=== PATIENT | female | born 1980 | race Caucasian/White ===

== ENCOUNTER 2016-07-03 11:45 | Inpatient (IN) | payer MEDICAID ==
[2016-07-03] VITALS (7 sets, daily range): BP systolic 117–139; BP diastolic 76–100; PULSE 93–129; RESP 16
[~2016-07-03 11:45] MED LIST: ADDE30TA PO; PREN1MIS11 PO
[2016-07-03] MEDS ORDERED: LACTATED RINGER'S 1000 ML INJ 1,000 ML IV PRN (12:20)
[2016-07-03] MEDS ORDERED: MINERAL OIL 10 ML VIAL TOPICAL PRN (12:30)
[2016-07-03] MEDS ORDERED: SODIUM CHLORID 0.9% 500 ML INJ 500 ML IV PRN (12:30)
[2016-07-03] MEDS ORDERED: LIDOCAINE HCL 1% 50 ML VIAL INFIL PRN (12:30)
[2016-07-03] MEDS ORDERED: LIDOCAINE HCL 1% 50 ML VIAL I-DERMAL PRN (12:30)
[2016-07-03] MEDS ORDERED: CITRIC ACID-SODIUM CITRATE LIQ 30 ML UDC PO SCH (12:30)
[2016-07-03] MEDS ORDERED: OXYTOCIN 30 UNITS-500ML PREMIX 500 ML IV SCH (12:30)
[2016-07-03] MEDS ORDERED: OXYTOCIN 30 UNITS-500ML PREMIX 500 ML IV ONE ×2 (12:30→23:30)
--- NOTE | 2016-07-03 12:39 | PD ---
HPI Chief Complaint Polyhydramnios Date Seen: Jul 03, 2016 Time Seen: 12:49 Travel History International Travel<30 Days: No Contact w/Intl Traveler<30Days: No Known Affected Area: No History of Present Illness HPI 36-year-old G4 for P2, presenting at 39.4 weeks gestation, with HUBER of 2016, diagnosed with polyhydramnios and an ultrasound done on 06/24 (MICA of 27.3 ). She has had late care, establishing care with the OB provider at 33 weeks. She is GBS negative. A BPP today on admission was 8. He has been using tobacco, and Adderall 30 mg daily throughout the , however quit approximately 2 weeks ago. She was not screened for gestational diabetes. Estimated weight greater than 90th percentile. No evidence of placenta previa (06/24) that was noted on previous ultrasounds. Today, she feels well. She denies any regular contractions that are increasing in frequency. She denies any loss of fluid or vaginal bleeding. She has been having some exertional dyspnea, but this is not new. She denies any headaches or change in vision. History Past Medical History Narrative Medical ADHD Gestational hypertension (this ) - blood pressures in the office 152- 150 systolic. No protein on urine dip. Tobacco use Polyhydramnios Advanced maternal age Late care. Previous placenta previa, no longer seen on ultrasound on 06/24. Surgical history: D&C in 2008 at 12 weeks gestation. Right ear drum surgery in 2012. Obstetric History Obstetric History Spontaneous vaginal delivery 2, no complications No previous C-sections Past Surgical History Narrative Surgical As above Family History Family History: Negative Social History Alcohol Use: No Tobacco Use: Yes (quit approximately 2 weeks ago) Substance Abuse: No (she denies any illicit substance abuse.) Allergies-Medications (Allergen,Severity, Reaction): Coded Allergies: Augmentin (Verified Allergy, Severe, Anaphylaxis, 06/26/16) Home Meds Active Scripts W/O Vit A W/ Fe Carbo Pack (Citranatal 90 Dha Pack)90-1 & 300 Mg Pack1 Ea PO DAILY #60 BLISTER Ref 11 30 day supply. Prov:Nadia Browne 05/27/16 Reported Medications Amphetamine-Dextroamphetamine (Adderall)30 Mg Tab30 Mg PO BID #60 TAB Ref 0 Avoid late evening doses. Space doses at least 4 to 6 hours if more than once/day dosing. 05/27/16 Review of Systems Except as stated in HPI: all other systems reviewed are Neg Physical Exam Narrative GENERAL: Well-nourished, well-developed patient. SKIN: Warm and dry. HEAD: Normocephalic and atraumatic. EYES: No scleral icterus. No injection or drainage. ENT: No nasal drainage noted. Mucous membranes pink. Airway patent. NECK: Supple, trachea midline. No JVD. CARDIOVASCULAR: Regular rate and rhythm without murmurs, gallops, or rubs. RESPIRATORY: Breath sounds equal bilaterally. No accessory muscle use. BREASTS: Bilateral exam showed no masses , no retractions, no nipple discharge. ABDOMEN/GI: Abdomen soft, non-tender, bowel sounds present, no rebound, no guarding Gravid to 39+ GENITOURINARY: External Genitalia: intact and normal in appearance Cervix: midposition Dilatation: 2-3 cm Effacement: 50% Presentation: Vertex Membranes: intact Uterine Contractions: occ FHT's: Category: 1 Baseline: 145 Reactive: Y Variability: moderate 6-25 Decels: [-] EXTREMITIES: No cyanosis or edema. BACK: Nontender without obvious deformity. NEUROLOGICAL: Awake and alert. Motor and sensory grossly within normal limits. Data Data Orders Ob Poc Ultrasound (07/03/16 ) Admit To Inpatient (07/03/16 ) Code Status (07/03/16 12:20) Vital Signs (Adult) .Per protocol (07/03/16 12:20) ^ Heart (07/03/16 12:20) ^ Amnioinfusion (07/03/16 12:20) Urinary Catheter Management .ONCE (07/03/16 12:20) Lactated Ringer's 1000 Ml Inj (Lr 1000 M (07/03/16 13:00) Lactated Ringer's 1000 Ml Inj (Lr 1000 M (07/03/16 12:20) Sodium Chlorid 0.9% 500 Ml Inj (Ns 500 M (07/03/16 12:30) Sodium Chlor 0.9% 1000 Ml Inj (Ns 1000 M (07/03/16 12:40) Lidocaine 1% Inj (50 Ml) (Xylocaine 1% I (07/03/16 12:30) Citric Acid-Sodium Citrate Liq (Bicitra (07/03/16 12:30) Fentanyl Inj (Fentanyl Inj) (07/03/16 12:30) Fentanyl Inj (Fentanyl Inj) (07/03/16 12:30) Complete Blood Count With Diff (07/03/16 12:20) Hold Clot (07/03/16 12:20) Abo/Rh Blood Type (07/03/16 12:20) Urinalysis - C+S If Indicated (07/03/16 12:20) Resp Oxygen Non Rebreathe Mask (07/03/16 ) ^ Epidural / Intrathecal Infus (07/03/16 12:20) Oxytocin 30 Units-500ml Premix (Pitocin (07/03/16 12:30) Lidocaine 1% Inj (50 Ml) (Xylocaine 1% I (07/03/16 12:30) Light Mineral Oil (Muri-Lube Oil) (07/03/16 12:30) Inpatient Certification (07/03/16 ) ^ Non Stress Test (07/03/16 12:22) Response To Medication .Post New Med Administration, Reaction (07/03/16 12:22) ^ Discontinue Medication (07/03/16 12:22) Oxytocin 30 Units-500ml Premix (Pitocin (07/03/16 12:30) Ob (2e) Additional Admit Info (07/03/16 12:22) [facility] Medical Record Reviewed: Yes Plan 36 y/o at 39.4 weeks gestation presenting with oligohydramnios (MICA 27.3), LGA (>90% on 38 week US), tobacco use, Adderall use, placenta previa (resolved on US on 06/24), presenting for BPP and possible induction of labor. #1: IUP Admit for induction of labor. Pitocin 30 #2: Polyhydramnios BPP 02/09 on bedside. Cat 1 tracing Cervix 2-3 cm, 50% effaced, mid position. Having period contractions. Admit to L&D for augmentation of labor 2/2 several risk factors (i.e polyhydramnios, gestational hypertension, tobacco use, LGA, previous placenta previa). #3: Tob use during Quit smoking 2 weeks ago. #4: Elevated BP - 154 systolic in third trimester in office. Continue to monitor BP q 1 hr, treat with nifedipine 10 mg if > 150/90. Negative Protein in urine as outpatient. #5: Placenta Previa Resolved #6: LGA baby >90% on OB US at 38 weeks. Check HgA1c and glucose. Labor precautions sdw Dr. Nuñez. Jonathan Lisa MD R2 Jul 03, 2016 12:39
[2016-07-03] MEDS ORDERED: SODIUM CHLOR 0.9% 1000 ML INJ 1,000 ML IV PRN (12:40)
[2016-07-03] MEDS ORDERED: LACTATED RINGER'S 1000 ML INJ 1,000 ML IV SCH (13:00)
--- NOTE | 2016-07-03 13:12 | HHI.HP ---
History & Physical H&P HPI Chief Complaint Polyhydramnios Date Seen: Jul 03, 2016 Time Seen: 12:49 Travel History International Travel<30 Days: No Contact w/Intl Traveler<30Days: No Known Affected Area: No History of Present Illness HPI 36-year-old G4 for P2, presenting at 39.4 weeks gestation, with HUBER of 2016, diagnosed with polyhydramnios and an ultrasound done on 06/24 (MICA of 27.3 ). She has had late care, establishing care with the OB provider at 33 weeks. She is GBS negative. A BPP today on admission was 8/8. He has been using tobacco, and Adderall 30 mg daily throughout the , however quit approximately 2 weeks ago. She was not screened for gestational diabetes. Estimated weight greater than 90th percentile. No evidence of placenta previa (06/24) that was noted on previous ultrasounds. Today, she feels well. She denies any regular contractions that are increasing in frequency. She denies any loss of fluid or vaginal bleeding. She has been having some exertional dyspnea, but this is not new. She denies any headaches or change in vision. History (Limited) History Past Medical History Narrative Medical ADHD Gestational hypertension (this ) - blood pressures in the office 152- 150 systolic. No protein on urine dip. Tobacco use Polyhydramnios Advanced maternal age Late care. Previous placenta previa, no longer seen on ultrasound on 06/24. Surgical history: D&C in 2009 at 12 weeks gestation. Right ear drum surgery in 2012. Obstetric History Obstetric History Spontaneous vaginal delivery 2, no complications No previous C-sections Past Surgical History Narrative Surgical As above Family History Family History: Negative Social History Alcohol Use: No Tobacco Use: Yes (quit approximately 2 weeks ago) Substance Abuse: No (she denies any illicit substance abuse.) Allergies-Medications Allergies-Medications (Allergen,Severity, Reaction): Coded Allergies: Augmentin (Verified Allergy, Severe, Anaphylaxis, 06/26/16) Home Meds Active Scripts W/O Vit A W/ Fe Carbo Pack (Citranatal 90 Dha Pack)90-1 & 300 Mg Pack1 Ea PO DAILY #60 BLISTER Ref 11 30 day supply. Prov:Nadia Browne 05/27/16 Reported Medications Amphetamine-Dextroamphetamine (Adderall)30 Mg Tab30 Mg PO BID #60 TAB Ref 0 Avoid late evening doses. Space doses at least 4 to 6 hours if more than once/day dosing. 05/27/16 ROS Review of Systems Except as stated in HPI: all other systems reviewed are Neg Physical Exam Physical Exam Narrative GENERAL: Well-nourished, well-developed patient. SKIN: Warm and dry. HEAD: Normocephalic and atraumatic. EYES: No scleral icterus. No injection or drainage. ENT: No nasal drainage noted. Mucous membranes pink. Airway patent. NECK: Supple, trachea midline. No JVD. CARDIOVASCULAR: Regular rate and rhythm without murmurs, gallops, or rubs. RESPIRATORY: Breath sounds equal bilaterally. No accessory muscle use. BREASTS: Bilateral exam showed no masses , no retractions, no nipple discharge. ABDOMEN/GI: Abdomen soft, non-tender, bowel sounds present, no rebound, no guarding Gravid to 39+ GENITOURINARY: External Genitalia: intact and normal in appearance Cervix: midposition Dilatation: 2-3 cm Effacement: 50% Presentation: Vertex Membranes: intact Uterine Contractions: occ FHT's: Category: 1 Baseline: 145 Reactive: Y Variability: moderate 6-25 Decels: [-] EXTREMITIES: No cyanosis or edema. BACK: Nontender without obvious deformity. NEUROLOGICAL: Awake and alert. Motor and sensory grossly within normal limits. Data Data Data Orders Ob Poc Ultrasound (07/03/16 ) Admit To Inpatient (07/03/16 ) Code Status (07/03/16 12:20) Vital Signs (Adult) .Per protocol (07/03/16 12:20) ^ Heart (07/03/16 12:20) ^ Amnioinfusion (07/03/16 12:20) Urinary Catheter Management .ONCE (07/03/16 12:20) Lactated Ringer's 1000 Ml Inj (Lr 1000 M (07/03/16 13:00) Lactated Ringer's 1000 Ml Inj (Lr 1000 M (07/03/16 12:20) Sodium Chlorid 0.9% 500 Ml Inj (Ns 500 M (07/03/16 12:30) Sodium Chlor 0.9% 1000 Ml Inj (Ns 1000 M (07/03/16 12:40) Lidocaine 1% Inj (50 Ml) (Xylocaine 1% I (07/03/16 12:30) Citric Acid-Sodium Citrate Liq (Bicitra (07/03/16 12:30) Fentanyl Inj (Fentanyl Inj) (07/03/16 12:30) Fentanyl Inj (Fentanyl Inj) (07/03/16 12:30) Complete Blood Count With Diff (07/03/16 12:20) Hold Clot (07/03/16 12:20) Abo/Rh Blood Type (07/03/16 12:20) Urinalysis - C+S If Indicated (07/03/16 12:20) Resp Oxygen Non Rebreathe Mask (07/03/16 ) ^ Epidural / Intrathecal Infus (07/03/16 12:20) Oxytocin 30 Units-500ml Premix (Pitocin (07/03/16 12:30) Lidocaine 1% Inj (50 Ml) (Xylocaine 1% I (07/03/16 12:30) Light Mineral Oil (Muri-Lube Oil) (07/03/16 12:30) Inpatient Certification (07/03/16 ) ^ Non Stress Test (07/03/16 12:22) Response To Medication .Post New Med Administration, Reaction (07/03/16 12:22) ^ Discontinue Medication (07/03/16 12:22) Oxytocin 30 Units-500ml Premix (Pitocin (07/03/16 12:30) Ob (2e) Additional Admit Info (07/03/16 12:22) MDM MDM Medical Record Reviewed: Yes Plan 36 y/o at 39.4 weeks gestation presenting with oligohydramnios (MICA 27.3), LGA (>90% on 38 week US), tobacco use, Adderall use, placenta previa (resolved on US on 06/24), presenting for BPP and possible induction of labor. #1: IUP Admit for induction of labor. Pitocin 07-05-29 #2: Polyhydramnios BPP 02/09 on bedside. Cat 1 tracing Cervix 2-3 cm, 50% effaced, mid position. Having period contractions. Admit to L&D for augmentation of labor 2/2 several risk factors (i.e polyhydramnios, gestational hypertension, tobacco use, LGA, previous placenta previa). #3: Tob use during Quit smoking 2 weeks ago. #4: Elevated BP - 154 systolic in third trimester in office. Continue to monitor BP q 1 hr, treat with nifedipine 10 mg if > 150/90. Negative Protein in urine as outpatient. #5: Placenta Previa Resolved #6: LGA baby >90% on OB US at 38 weeks. Check HgA1c and glucose. Labor precautions sdw Dr. Nuñez. Jonathan Lisa MD R2 Jul 03, 2016 13:12
[2016-07-03 13:33] LABS: AUTOMATED NEUTROPHIL # 10.4 TH/MM3 (1.8-7.7); BASOPHIL # 0.1 TH/MM3 (0-0.2); BASOPHIL % 0.4 % (0.0-2.0); EOSINOPHIL # 0.3 TH/MM3 (0-0.4); EOSINOPHIL % 2.1 % (0.0-4.0); LYMPH % 17.6 % (9.0-44.0); LYMPHOCYTE # 2.5 TH/MM3 (1.0-4.8); MEAN CELL VOLUME 83.7 FL (80.0-100.0); MEAN CORPUSCULAR HEMOGLOBIN 28.2 PG (27.0-34.0); MEAN CORPUSCULAR HGB CONC 33.8 % (32.0-36.0); MONO % 7.9 % (0.0-8.0); PLATELET COUNT 226 TH/MM3 (150-450); RED CELL DISTRIBUTION WIDTH 14.3 % (11.6-17.2); WHITE BLOOD COUNT 14.4 TH/MM3 (4.0-11.0)
[2016-07-03 13:35] LABS: BACTERIA, URINE RARE /hpf; BLOOD, URINE NEG (NEG); GLUCOSE,URINE NEG (NEG); KETONE, URINE NEG (NEG); MUCUS URINE FEW /lpf (OCC); NITRITE,URINE NEG (NEG); PH, URINE 7.5 (5.0-8.5); SQUAMOUS EPITHELIAL CELL URINE 7 /hpf (0-5); TRANSITIONAL EPI CELLS, URINE <1 /hpf; URINE COLOR YELLOW (YELLW/STRAW)
[2016-07-03 13:36] LABS: HEMO FLAGS AUTO DIFF
[2016-07-03 13:37] LABS: COMMENT (UR) CATH-CULTURE IND; CULTURE IF INDICATED CATH CULTURE IND
[2016-07-03 14:29] LABS: BANDS 10 % (0-6); EOSINOPHILS 2 % (0-4); NEUTROPHIL # MANUAL DIFF 9.5 TH/MM3 (1.8-7.7); PLATELET ESTIMATE SMEAR NORMAL (NORMAL); PLATELET MORPHOLOGY NORMAL (NORMAL); POLYS (SEG NEUTROPHILS) 56 % (16-70); SCAN/DIFF FINAL DIFF MANUAL; WBC DIFF SAMPLE 100
--- NOTE | 2016-07-03 17:15 | PD.LABORPN ---
Subjective Subjective Patient starting to feel her contractions not very uncomfortable Objective Vital Signs Vital Signs Date Time Temp Pulse Resp B/P Pulse Ox O2 Delivery O2 Flow Rate FiO2 07/03/16 15:00 129 117/76 07/03/16 14:45 110 126/100 07/03/16 14:36 16 07/03/16 14:32 109 124/94 07/03/16 14:15 93 16 139/90 07/03/16 13:45 16 07/03/16 12:46 110 138/81 Objective Pelvic Exam: Cervix: [-] Midline Dilatation: [-] 3 centimeters Effacement: [-] 80% effaced Station: [-] -2 Presentation: [-] Vertex Membranes: [ ruptured]fluid is copious and clear Uterine Contractions: [-] 2-3 FHT's: Category: [-]1 Baseline: [-] 130s Reactive: [-] + Variability: [-] Moderate [id number] variability positive accelerations Decels: [-] 0 Assessment/Plan Assessment and Plan Assessment; doing well dressing in labor Plan; continue present management Holly Nuñez MD Jul 03, 2016 17:15
[2016-07-03] MEDS ORDERED: fentaNYL 2MCG-BUPIV 0.125% INJ 100 ML ONE (18:48)
[2016-07-03] MEDS ORDERED: ePHEDrine/NS 50 MG/5 ML SYR IV PRN (19:45)
[2016-07-03] MEDS ORDERED: DO NOT ADMINISTER ANTICOAGULANTS XX PRN (19:45)
[2016-07-03] MEDS ORDERED: NO SYSTEM NARCOTICS XX PRN (19:45)
[2016-07-03] MEDS ORDERED: ONDANSETRON HCL 4 MG/2 ML VIAL ONE (19:52)
[2016-07-03] MEDS ORDERED: fentaNYL 2MCG-BUPIV 0.125% INJ 100 ML EPIDURAL SCH (20:00)
[2016-07-03 21:48] LABS: ANION GAP 10 MEQ/L (5-15); BICARBONATE 23.1 MEQ/L (21.0-32.0); BLOOD UREA NITROGEN 6 MG/DL (7-18); CHLORIDE 104 MEQ/L (98-107); GLOMERULAR FILTRATION RATE 163 ML/MIN (>89); POTASSIUM 3.6 MEQ/L (3.5-5.1); SODIUM (NA) 137 MEQ/L (136-145)
--- NOTE | 2016-07-03 23:26 | PD.OB.DELI ---
Delivery Date: Jul 03, 2016 Anesthesia: Epidural Episiotomy: None Vaginal Delivery: Normal, Spontaneous Presentation: Occiput anterior Nuchal Cord: None Infant: Male One Minute : 9 Five Minute : 9 Weight: 7lbs 11oz Infant Care: Spontaneous crying, Responded to stimulation Placenta: Spontaneous delivery, Intact, 3 vessel cord Laceration: 2 deg Repair: Chromic running Additional Information 36 year old now delivered at 39.4 weeks gestation. Apgars 9/9. Placenta delivered spontaneously. 2nd degree vaginal laceration was repaired with 2.0 chromic running suture. (Henry Stokes MD R1) Addendum Remarks I rounded on the patient. I rounded with the resident. I reviewed the resident' s assessment and plan of care for this patient. I am in agreement with the plan of care for this patient. (Holly Nuñez MD) Henry Stokes MD R1 Jul 03, 2016 23:25 Holly Nuñez MD Jul 03, 2016 23:39
[2016-07-03] MEDS ORDERED: ZOLPIDEM TARTRATE 5 MG TAB PO PRN (23:30)
[2016-07-03] MEDS ORDERED: BENZOCAINE 20% TOPICAL SPRAY 60 ML CAN TOPICAL PRN (23:30)
[2016-07-03] MEDS ORDERED: ALUMINUM/MAGNESIUM/SIMETH 30 ML CUP PO PRN (23:30)
[2016-07-03] MEDS ORDERED: WITCH HAZEL 50%/GLYCERIN 12.5% 40 PAD JAR TOPICAL PRN (23:30)
[2016-07-03] MEDS ORDERED: ONDANSETRON ODT 4 MG TAB PO PRN (23:30)
[2016-07-03] MEDS ORDERED: SODIUM CHLORIDE 0.9% FLUSH 5 ML FLUSH IV PRN (23:30)
[2016-07-03] MEDS ORDERED: ACETAMINOPHEN 325 MG TAB PO PRN (23:30)
[2016-07-04] MEDS: DOCUSATE SODIUM 50 MG/SENNA 8.6 MG TAB PO PRN ×2 (01:39→20:00)
[2016-07-04] MEDS: IBUPROFEN 600 MG TAB PO PRN ×3 (01:41→20:00)
--- NOTE | 2016-07-04 07:53 | HHI.OB ---
Subjective Post Day: 1 Remarks Lying comfortably in bed. States she is having mild amount of vaginal bleeding that soaked up a pad when using the restroom. Reports lower abdominal and pelvic pain/discomfort. Denies fevers, chills, chest pain, shortness of breath. Ambulating to restroom and back within room without issues. She plans to breastfeed and denies any issues thus far. Objective Vitals/I&O Vital Signs Date Time Temp Pulse Resp B/P Pulse Ox O2 Delivery O2 Flow Rate FiO2 07/03/16 15:00 129 117/76 07/03/16 14:45 110 126/100 07/03/16 14:36 16 07/03/16 14:32 109 124/94 07/03/16 14:15 93 16 139/90 07/03/16 13:45 16 07/03/16 12:46 110 138/81 Objective Remarks GENERAL: Well-nourished, well-developed patient. CARDIOVASCULAR: Regular rate and rhythm without murmurs, gallops, or rubs. RESPIRATORY: Breath sounds equal bilaterally. No accessory muscle use. ABDOMEN/GI: Abdomen soft, non-tender. Fundus: Firm, non-tender at umbilicus. EXTREMITIES: No cyanosis or edema, non-tender, without signs of DVT. Medications and IVs Current Medications Medications (Trade) Dose Ordered Sig/Sasha Route Start Time Stop Time Status Last Admin (NS Flush) 2 ml BID IV 07/04/16 09:00 (NS Flush) 2 ml UNSCH PRN IV 07/03/16 23:30 (Tylenol) 650 mg Q4H PRN PO 07/03/16 23:30 (Motrin) 600 mg Q6H PRN PO 07/03/16 23:30 07/04/16 01:41 (Americaine 20% Top Spr) 1 spray Q4H PRN TOPICAL 07/03/16 23:30 07/04/16 01:39 (Tucks Pads) 1 applic QID PRN TOPICAL 07/03/16 23:30 07/04/16 01:39 (Maritza-Colace) 2 tab Q12H PRN PO 07/03/16 23:30 07/04/16 01:39 (Ambien) 5 mg HS PRN PO 07/03/16 23:30 (Mag-Al Plus Susp Liq) 15 ml Q8H PRN PO 07/03/16 23:30 (Zofran Odt) 4 mg Q6H PRN PO 07/03/16 23:30 Assessment/Plan Assessment and Plan 36 year old now PPD#1 delivered via at 39.4 weeks gestation. 1. Care - Encouraged OOB, as tolerated - Motrin prn pain - Advised pelvic rest x 6 weeks - Plans to breastfeed. Currently denies issues. - Contraception: Considering OCPs - Continue routine care - Will f/u with OB provider in 6 weeks Henry Stokes MD R1 Jul 04, 2016 07:53
[2016-07-04] MEDS: SODIUM CHLORIDE 0.9% FLUSH 5 ML FLUSH IV SCH ×2 (09:00→21:00)
[2016-07-05] MEDS: IBUPROFEN 600 MG TAB PO PRN (02:05)
[2016-07-05] MEDS ORDERED: AZIT500T2 PO (09:28)
[2016-07-05] MEDS ORDERED: IBUP-232 PO (09:28)
--- NOTE | 2016-07-05 09:29 | HHI.DCPOC ---
Discharge Care Plan Diagnosis: (1) Polyhydramnios (2) (spontaneous vaginal delivery) Report Symptoms to Your Doctor -Temperate above 100.5 degrees -Redness, of incision or excessive or foul smelling drainage -Unusual pain or calf pain -Increased vaginal bleeding -Painful or difficulty urinating -Feelings of extreme sadness or anxiety after 2 weeks Goals to Promote Your Health * To prevent worsening of your condition and complications * To maintain your health at the optimal level Directions to Meet Your Goals Take your medications as prescribed Follow your dietary instruction Follow activity as directed Ensure plenty of rest for recovery Drink fluids for hydration Keep your appointments as scheduled Take your immunizations and boosters as scheduled If your symptoms worsen call your PCP, if no PCP go to Urgent Care Center or Emergency Room Smoking is Dangerous to Your Health. Avoid second hand smoke Call the 24-hour crisis hotline for domestic abuse at Shanti Cancino MD R2 Jul 05, 2016 09:29
[2016-07-05] MEDS ORDERED: AZITHROMYCIN 250 MG TAB PO ONE (10:00)
[2016-07-05] MEDS ORDERED: DIPHTH/TETANUS/ACEL PERTUSSIS (BOOSTER) 0.5 ML VIAL/PFS IM ONE (10:15)
--- NOTE | 2016-07-05 11:31 | HHI.OB ---
Subjective Post Day: 2 Remarks 36 year old female s/p complicated by a second-degree tear at 39/4 wks gestation, PPD 2. AFVSS. Patient reports she is feeling well but is concerned about right ear pain as she has a history of recurrent ear infections. Bleeding is decreasing and pain is well-controlled. She is breast feeding and bonding well with baby. Ambulating without difficulties. She is tolerating a diet without nausea or vomiting. She has had a bowel movement. Denies chest pain, dysuria, shortness of breath, or calf pain. Objective Objective Remarks GENERAL: Well-nourished, well-developed patient. EAR: Non-erythematous right TM but with pus behind TM. Left TM unremarkable CARDIOVASCULAR: Regular rate and rhythm without murmurs, gallops, or rubs. RESPIRATORY: Breath sounds equal bilaterally. No accessory muscle use. ABDOMEN/GI: Abdomen soft, non-tender. Fundus: Firm, non-tender at umbilicus. EXTREMITIES: No cyanosis or edema, non-tender, without signs of DVT. Medications and IVs Current Medications Medications (Trade) Dose Ordered Sig/Sasha Route Start Time Stop Time Status Last Admin (NS Flush) 2 ml BID IV 07/04/16 09:00 (NS Flush) 2 ml UNSCH PRN IV 07/03/16 23:30 (Tylenol) 650 mg Q4H PRN PO 07/03/16 23:30 (Motrin) 600 mg Q6H PRN PO 07/03/16 23:30 07/05/16 02:05 (Americaine 20% Top Spr) 1 spray Q4H PRN TOPICAL 07/03/16 23:30 07/04/16 01:39 (Tucks Pads) 1 applic QID PRN TOPICAL 07/03/16 23:30 07/04/16 01:39 (Maritza-Colace) 2 tab Q12H PRN PO 07/03/16 23:30 07/04/16 20:00 (Ambien) 5 mg HS PRN PO 07/03/16 23:30 (Mag-Al Plus Susp Liq) 15 ml Q8H PRN PO 07/03/16 23:30 (Zofran Odt) 4 mg Q6H PRN PO 07/03/16 23:30 07/05/16 09:23 Assessment/Plan Assessment and Plan 36 year old now PPD#2 delivered via at 39.4 weeks gestation. 1. Care - Encouraged OOB, as tolerated - Motrin prn pain - Advised pelvic rest x 6 weeks - Contraception: Options discussed. Considering OCPs, will obtain as outpatient - Continue routine care - Will f/u with OB provider (care for woman) in 6 weeks 2. Right otitis media * History of recurrent ear infections successfully treated with azithromycin * Azithromycin 500 mg 1 today * Discharge with azithromycin Discharge home today dw Dr. Tim Cancino,Shanti Cedeño MD R2 Jul 05, 2016 11:31
[2016-07-06 17:20] LABS: HEMOGLOBIN A1a 1.3 %; HEMOGLOBIN A1b 1.6 %; HEMOGLOBIN Ao 85.4 %; HEMOGLOBIN F 0.2 %; HEMOGLOBIN LA1C 1.4 %; HEMOGLOBIN P3 3.5 %
[2016-07-22] MEDS ORDERED: AZIT500T2 PO (15:17)
[2016-07-22] MEDS ORDERED: PERI8.6T PO (15:19)
== END 2016-07-05 15:22 | disposition home or self-care (01) | DRG 775 ==
LOC: HOBED 11:45 → H2EA 12:29 → H1EA 07-04 01:00
PROVIDERS: ADMIT Obstetrics & Gynecology; ATTEND Obstetrics & Gynecology
PROC: 10E0XZZ Delivery of Products of Conception, External Approach (ICD-10-PCS; principal; 2016-07-03)
PROC: 0KQM0ZZ Repair Perineum Muscle, Open Approach (ICD-10-PCS; 2016-07-03)
PROC: 00HU33Z Insertion of Infusion Device into Spinal Canal, Percutaneous Approach (ICD-10-PCS; 2016-07-03)
PROC: 3E0R3CZ (ICD-10-PCS; 2016-07-03)
DX: O40.3XX0 Polyhydramnios, third trimester, not applicable or unspecified (principal); O13.4 Gestational [pregnancy-induced] hypertension without significant proteinuria, complicating childbirth; Z37.0 Single live birth; F17.210 Nicotine dependence, cigarettes, uncomplicated; Z3A.39 39 weeks gestation of pregnancy; O99.334 Smoking (tobacco) complicating childbirth; O99.344 Other mental disorders complicating childbirth; F90.9 Attention-deficit hyperactivity disorder, unspecified type; O36.63X0 Maternal care for excessive fetal growth, third trimester, not applicable or unspecified; O09.523 Supervision of elderly multigravida, third trimester; O70.1 Second degree perineal laceration during delivery; H66.91 Otitis media, unspecified, right ear
CPT/HCPCS: 59025; 80048; 81001; 83036; 85007; 85027; 86900; 86901; 87086; 90715; J2405; J2590

== ENCOUNTER 2016-12-15 22:43 | Emergency (ER) | payer SELFPAY ==
[~2016-12-15] VITALS: Ht 167.6 cm; Wt 55.0 kg
[~2016-12-15 22:43] MED LIST changes: -ADDE30TA PO; +IBUP-232 PO
[2016-12-15 22:46] VITALS: BP 114/75; PULSE 75; RESP 16; TEMP 97.6; O2SAT 99
[2016-12-16] MEDS ORDERED: ADDE15TA PO (00:08)
[2016-12-16] MEDS ORDERED: CLINDAMYCIN 150 MG CAP PO ONE (01:30)
[2016-12-16] MEDS ORDERED: BUPIVACAINE HCL PF 0.5% 10 ML VIAL INFIL ONE (01:30)
[2016-12-16] MEDS ORDERED: MUPI2OIN TOPICAL (01:54)
[2016-12-16] MEDS ORDERED: CLIN1CAP5 PO (01:54)
--- NOTE | 2016-12-16 01:54 | PD ---
HPI Chief Complaint: Skin Problem Time Seen by Provider: 01:30 Travel History International Travel<30 days: No Contact w/Intl Traveler<30days: No Traveled to known affect area: No History of Present Illness HPI Patient's a 36-year-old female presenting to emergency for evaluation of right second finger swelling. Patient states she noticed a small lesion to her right finger yesterday, over the course of the last 24 hours she has developed a large blister. She denies any sharif. She denies any fevers, chills, IV drug use. Of note patient son was in the emergency department last night for evaluation of a skin lesion. Patient is unsure if she was bitten by something. Patient reports a medical history of ADHD. She denies any other complaints at this time. [facility] Past Medical History ADHD: Yes Diminished Hearing: No Tetanus Vaccination: < 5 Years Influenza Vaccination: No ?: Not LMP: 12/14/16 : 3 Para: 3 Miscarriage: 1 Dilation and Curettage (D&C): Yes Past Surgical History Tympanostomy Tube: Yes (R eye) Other Surgery: Yes (Ear) Social History Alcohol Use: No Tobacco Use: Yes (1ppd) Substance Use: No Allergies-Medications (Allergen,Severity, Reaction): Coded Allergies: Augmentin (Verified Allergy, Severe, Anaphylaxis, 12/16/16) Reported Meds & Prescriptions Reported Meds & Active Scripts Active Reported Adderall (Amphetamine-Dextroamphetamine) 15 Mg Tab 15 Mg PO BID Avoid late evening doses. Space doses at least 4 to 6 hours if more than once/day dosing. Review of Systems Except as stated in HPI: all other systems reviewed are Neg General / Constitutional: No: Fever, Chills Musculoskeletal: Positive: Edema Skin: Positive Change in Pigmentation, Positive Lesions Physical Exam Narrative GENERAL: Well-nourished, well-developed patient. SKIN: Focused skin assessment warm/dry. 2 cm bullous lesion to the palmar aspect of the right second finger just distal to the PIP joint. There is mild surrounding erythema, areas tender to palpation. Brisk less than 2 second capillary refill. HEAD: Normocephalic. EYES: No scleral icterus. No injection or drainage. NECK: Supple, trachea midline. No JVD or lymphadenopathy. CARDIOVASCULAR: Regular rate and rhythm without murmurs, gallops, or rubs. RESPIRATORY: Breath sounds equal bilaterally. No accessory muscle use. GASTROINTESTINAL: Abdomen soft, non-tender, nondistended. MUSCULOSKELETAL: No cyanosis, or edema. BACK: Nontender without obvious deformity. No CVA tenderness. Data Data Last Documented VS Vital Signs Date Time Temp Pulse Resp B/P Pulse Ox O2 Delivery O2 Flow Rate FiO2 12/15/16 22:46 97.6 75 16 114/75 99 Orders Wound Culture And Gram Stain (12/16/16 01:25) Bupivacaine Pf 0.5% Inj (Marcaine Pf 0.5 (12/16/16 01:30) Clindamycin (Cleocin) (12/16/16 01:30) MDM Medical Decision Making Medical Screen Exam Complete: Yes Emergency Medical Condition: Yes Interpretation(s) Vital Signs Date Time Temp Pulse Resp B/P Pulse Ox O2 Delivery O2 Flow Rate FiO2 12/15/16 22:46 97.6 75 16 114/75 99 Differential Diagnosis Abscess versus cellulitis versus blister versus other Narrative Course Patient's 36-year-old female presenting with 1 day of evolving bullous lesion to the palmar aspect of her right second finger. Patient denies any IV drug use. Please see procedure report for I&D. Patient was given first dose of clindamycin in the emergency department. Her vital signs are stable, she is afebrile. She was advised to return to emergency department in 24 hours for reevaluation. She was advised to return sooner for any new or worsening symptoms. Patient verbalized understanding of instructions. Patient is stable for discharge. Procedures Procedure Narrative After the risks and benefits were discussed the following procedure was performed: INCISION AND DRAINAGE OF ABSCESS: The area was prepped and was sterilely draped. A number 11 scalpel was used to make a 0.5-cm incision across the area of the bullous lesion. Sanguinous drainage with white sediment drained, Cultures were obtained. The abscess was drained an irrigated with normal saline. Sterile dressing applied. Diagnosis Primary Impression: Cellulitis and abscess of finger, unspecified Referrals: [facility] Primary Care Physician Patient Instructions: Abscess Follow-up (ED), Abscess Incision and Drainage (ED ), General Instructions Additional Instructions: Return to the emergency department in 24 hours for reevaluation Keep dressing clean and dry Complete full course of antibiotics as prescribed Return to emergency department immediately for any new or worsening symptoms Follow-up with a primary doctor or at the [facility] Med/Other Pt SpecificInfo: Prescription(s) given Scripts Mupirocin Topical 2 % Oint1 Applic TOPICAL BID #1 TUBE Ref 0 Prov:Paula Reed 12/16/16 Clindamycin 150 Mg Mig594 Mg PO Q8HR 10 Days Ref 0 Prov:Paula Reed 12/16/16 Disposition: 01 DISCHARGE HOME Condition: Stable Paula Reed Dec 16, 2016 01:54
== END 2016-12-16 02:40 | disposition home or self-care (01) ==
LOC: NEPK 22:43
DX: L02.511 Cutaneous abscess of right hand (principal); B95.0 Streptococcus, group A, as the cause of diseases classified elsewhere; B95.61 Methicillin susceptible Staphylococcus aureus infection as the cause of diseases classified elsewhere
CPT/HCPCS: 26010; 86403; 87070; 87186

== ENCOUNTER → 2017-09-08 | Outpatient (CLI) | payer MEDICAID ==
[~2017-09-08] MED LIST changes: +ADDE15TA PO; +CLIN150C14 PO; -IBUP-232 PO; +MUPI2OIN TOPICAL; -PREN1MIS11 PO
== END ==
LOC: HPND 11:29
PROVIDERS: ATTEND Obstetrics & Gynecology
DX: O09.522 Supervision of elderly multigravida, second trimester (principal); O99.332 Smoking (tobacco) complicating pregnancy, second trimester
CPT/HCPCS: 76811; 76825; 76827; 93325

== ENCOUNTER → 2017-10-21 | Outpatient (CLI) | payer MEDICAID | LOC: HPND 14:05 | PROVIDERS: ATTEND Obstetrics & Gynecology | DX: O09.522 Supervision of elderly multigravida, second trimester (principal) | CPT/HCPCS: 76816 ==

== ENCOUNTER → 2017-11-18 | Outpatient (CLI) | DX: O09.523 Supervision of elderly multigravida, third trimester (principal); O09.33 Supervision of pregnancy with insufficient antenatal care, third trimester ==

== ENCOUNTER → 2017-12-16 | Outpatient (CLI) | payer MEDICAID | LOC: HPND 14:29 | PROVIDERS: ATTEND Obstetrics & Gynecology | DX: O99.323 Drug use complicating pregnancy, third trimester (principal); O09.523 Supervision of elderly multigravida, third trimester; O99.333 Smoking (tobacco) complicating pregnancy, third trimester | CPT/HCPCS: 76816 ==

== ENCOUNTER 2017-12-24 23:20 | Observation (INO) | payer MEDICAID ==
[~2017-12-24] VITALS: Ht 162.6 cm; Wt 77.0 kg
[2017-12-25] VITALS (52 sets, daily range): BP systolic 110–149; BP diastolic 68–88; PULSE 108–135; RESP 16–20; TEMP 98.2–101.2; O2SAT 99
[2017-12-25] MEDS: LACTATED RINGER'S 1000 ML INJ 1,000 ML IV SCH ×8 (00:37→16:45)
[2017-12-25] MEDS ORDERED: LIDOCAINE HCL 1% PF 5 ML AMPULE ONE (01:07)
[2017-12-25] MEDS: ONDANSETRON ODT 4 MG TAB PO PRN ×3 (01:41→14:21)
[2017-12-25] MEDS ORDERED: ZOLPIDEM TARTRATE 5 MG TAB PO PRN (01:45)
[2017-12-25] MEDS ORDERED: SODIUM CHLORIDE 0.9% FLUSH 10 ML FLUSH IV FLUSH PRN (01:45)
[2017-12-25 01:54] LABS: HEMATOCRIT 36.1 % (35.0-46.0); MEAN CELL VOLUME 88.1 FL (80.0-100.0); MEAN CORPUSCULAR HEMOGLOBIN 29.3 PG (27.0-34.0); MEAN CORPUSCULAR HGB CONC 33.3 % (32.0-36.0); MEAN PLATELET VOLUME 12.2 FL (7.0-11.0); PLATELET COUNT 177 TH/MM3 (150-450)
[2017-12-25 01:59] LABS: BACTERIA, URINE MANY /hpf; BILIRUBIN, URINE NEG (NEG); BLOOD, URINE NEG (NEG); GLUCOSE,URINE NEG (NEG); HYALINE CAST, URINE 3 /lpf (RARE); KETONE, URINE TRACE mg/dL (NEG); MUCUS URINE MANY /lpf (OCC); NITRITE,URINE NEG (NEG); SQUAMOUS EPITHELIAL CELL URINE 68 /hpf (0-5); URINE COLOR Amber (YELLW/STRAW); URINE LEUKOCYTE ESTERASE SMALL (NEG)
[2017-12-25 02:10] LABS: ALBUMIN 2.9 GM/DL (3.4-5.0); ALT (GPT) 16 U/L (10-53); AST (GOT) 18 U/L (15-37); BICARBONATE 19.1 MEQ/L (21.0-32.0); BLOOD UREA NITROGEN 10 MG/DL (7-18); CALCIUM 8.8 MG/DL (8.5-10.1); CHLORIDE 109 MEQ/L (98-107); CREATININE 0.54 MG/DL (0.50-1.00); GLOMERULAR FILTRATION RATE 128 ML/MIN (>89); GLUCOSE,RANDOM 82 MG/DL (74-106); SODIUM (NA) 141 MEQ/L (136-145)
[2017-12-25 02:11] LABS: ALKALINE PHOSPHATASE 156 U/L (45-117); TOTAL BILIRUBIN ADULT 0.3 MG/DL (0.2-1.0)
--- NOTE | 2017-12-25 02:14 | HHI.HP ---
History & Physical H&P HPI Chief Complaint nausea, vomiting and diarrhea Date Seen: Dec 25, 2017 Time Seen: 01:00 Travel History International Travel<30 Days: No Contact w/Intl Traveler<30Days: No Known Affected Area: No History of Present Illness HPI pt is 37 yo g 5 P 3013 who presents with 6-7 hour hx of n/v/d and cramping. states her FOB was admitted in ER with the same symptoms earlier today. denies fever, chills. +FM, denies vaginal bleeding or LOF. complicated by ama, smoker, hx of adhd stopped adderall about 1 wk ago. care with [facility]. History (Limited) History Past Medical History Narrative Medical adhd Obstetric History Obstetric History X 3 SAB X 1 Past Surgical History Narrative Surgical d&c suction right ear surgery Family History Family History: Negative Social History Alcohol Use: No Tobacco Use: Yes Substance Abuse: No Allergies-Medications Allergies-Medications (Allergen,Severity, Reaction): Coded Allergies: amoxicillin (Unverified Allergy, Severe, Anaphylaxis, 02/16/17) clavulanic acid (Unverified Allergy, Severe, Anaphylaxis, 02/16/17) Home Meds Active Scripts Mupirocin Topical (Mupirocin Topical) 2 % Oint, 1 APPLIC TOPICAL BID for Mgmt Bacterial Infection, #1 TUBE 0 Refills Prov:Paula Reed 12/16/16 Clindamycin (Clindamycin) 150 Mg Cap, 300 MG PO Q8HR for Infection for 10 Days, CAP 0 Refills Prov:Paula Reed 12/16/16 Reported Medications Amphetamine-Dextroamphetamine (Adderall) 15 Mg Tab, 15 MG PO BID for Hyperactivity Control, #60 TAB 0 Refills Avoid late evening doses. Space doses at least 4 to 6 hours if more than once/day dosing. 12/16/16 ROS Review of Systems Except as stated in HPI: all other systems reviewed are Neg Physical Exam Physical Exam Vital Signs Date Time Temp Pulse Resp B/P (MAP) Pulse Ox O2 Delivery O2 Flow Rate FiO2 12/25/17 01:18 20 12/25/17 01:10 127 12/25/17 01:05 129 12/25/17 01:00 122 Narrative GENERAL: Well-nourished, well-developed patient. SKIN: Warm and dry. HEAD: Normocephalic and atraumatic. EYES: No scleral icterus. No injection or drainage. ENT: No nasal drainage noted. Mucous membranes pink. Airway patent. NECK: Supple, trachea midline. No JVD. CARDIOVASCULAR: Regular rate and rhythm without murmurs, gallops, or rubs. RESPIRATORY: Breath sounds equal bilaterally. No accessory muscle use. BREASTS: Bilateral exam showed no masses , no retractions, no nipple discharge. ABDOMEN/GI: Abdomen soft, non-tender, bowel sounds present, no rebound, no guarding Gravid GENITOURINARY: External Genitalia: intact and normal in appearance BUS glands: [-] Cervix: [-] 2-3/70/-2 Dilatation: [-] Effacement: [-] Station: [-] Presentation: [-] vtx Membranes: [intact] Uterine Contractions: q 2-5 min FHT's: Category: [-] 1 Baseline: [-] 140s Reactive: [-] yes Variability: [-] Decels: [-] EXTREMITIES: No cyanosis or edema. BACK: Nontender without obvious deformity. No CVA tenderness. NEUROLOGICAL: Awake and alert. Motor and sensory grossly within normal limits. Five out of 5 muscle strength in all muscle groups. Normal speech. Data Data Data Vital Signs Reviewed: Yes Orders Orders Vital Signs (Adult) .ON ADMISSION (12/25/17 00:37) ^ Labor Status (12/25/17 00:37) Urinalysis - C+S If Indicated (12/25/17 00:37) ^ Non Stress Test (12/25/17 00:37) ^ Hydration (12/25/17 00:37) Cbc No Diff, Includes Plts (12/25/17 00:37) Comprehensive Metabolic Panel (12/25/17 00:37) Type And Screen (12/25/17 00:37) Lactated Ringer's 1000 Ml Inj (Lr 1000 M (12/25/17 00:37) Lidocaine Pf 1% Inj (Xylocaine-Mpf 1% In (12/25/17 01:07) Place In Observation (12/25/17 ) Diet Regular Basic (12/25/17 Breakfast) Vital Signs (Adult) RT.Q3H (12/25/17 01:32) Heart DAGO.QSHIFT (12/25/17 01:32) Activity Bed Rest With Brp (12/25/17 01:32) Lactated Ringer's 1000 Ml Inj (Lr 1000 M (12/25/17 01:32) Sodium Chloride 0.9% Flush (Ns Flush) (12/25/17 09:00) Sodium Chloride 0.9% Flush (Ns Flush) (12/25/17 01:45) Zolpidem (Ambien) (12/25/17 01:45) Ondansetron Odt (Zofran Odt) (12/25/17 01:45) Loperamide (Imodium) (12/25/17 01:45) Ob (2e) Additional Admit Info (12/25/17 01:45) Ob/Psych Drug Screen, Urine (12/25/17 01:55) Urine Culture (12/25/17 01:15) Labs Laboratory Tests Test 12/25/17 01:15 White Blood Count 23.0 Red Blood Count 4.10 Hemoglobin 12.0 Hematocrit 36.1 Mean Corpuscular Volume 88.1 Mean Corpuscular Hemoglobin 29.3 Mean Corpuscular Hemoglobin Concent 33.3 Red Cell Distribution Width 14.0 Platelet Count 177 Mean Platelet Volume 12.2 Urine Color Nila Urine Turbidity CLOUDY Urine pH 6.0 Urine Specific [place] 1.021 Urine Protein 100 Urine Glucose (UA) NEG Urine Ketones TRACE Urine Occult Blood NEG Urine Nitrite NEG Urine Bilirubin NEG Urine Urobilinogen LESS THAN 2 Urine Leukocyte Esterase SMALL Urine RBC 1 Urine WBC 13 Urine Squamous Epithelial Cells 68 Urine Bacteria MANY Urine Hyaline Casts 3 Urine Mucus MANY Microscopic Urinalysis Comment CULTURE INDICATED Date/Time Source Procedure Growth Status 12/25/17 01:15 Urine Clean Catch Urine Culture Pending Received MDM MDM Medical Record Reviewed: Yes Interpretation(s) Gastroenteritis at Term Plan IV hydrate check lab po zofran/imodium gbs neg Diagnosis Diagnosis: Primary Impression: 38 weeks gestation of Additional Impression: Gastroenteritis Vahe Diallo MD Dec 25, 2017 02:14
[2017-12-25] MEDS: LOPERAMIDE HCL 2 MG CAP PO PRN ×2 (02:32→06:39)
[2017-12-25] MEDS ORDERED: ZINC OXIDE 40% OINT 60 GM TUBE TOPICAL PRN (04:45)
[2017-12-25] MEDS: ACETAMINOPHEN 1000 MG/100 ML 100 ML IV SCH ×2 (08:44→14:30)
--- NOTE | 2017-12-25 08:52 | PD.OB.ANTE ---
Subjective Interval History pt continues to have nausea and vomiting. better with zofran. still with diarrhea about every hour, taking imodium. c/o chills. +FM, occasional contractions. Antepartum ROS: Reports: movement normal, Contractions (occasional) Objective Vital Signs Vital Signs Date Time Temp Pulse Resp B/P (MAP) Pulse Ox O2 Delivery O2 Flow Rate FiO2 12/25/17 08:44 100.0 12/25/17 07:35 125 12/25/17 07:35 122 99 12/25/17 07:30 129 129/68 (88) 12/25/17 07:30 99.9 17 12/25/17 01:18 20 12/25/17 01:10 127 12/25/17 01:05 129 12/25/17 01:00 122 Lab & Micro Results Test 12/25/17 01:15 White Blood Count 23.0 TH/MM3 Red Blood Count 4.10 MIL/MM3 Hemoglobin 12.0 GM/DL Hematocrit 36.1 % Mean Corpuscular Volume 88.1 FL Mean Corpuscular Hemoglobin 29.3 PG Mean Corpuscular Hemoglobin Concent 33.3 % Red Cell Distribution Width 14.0 % Platelet Count 177 TH/MM3 Mean Platelet Volume 12.2 FL Urine Color Nila Urine Turbidity CLOUDY Urine pH 6.0 Urine Specific [place] 1.021 Urine Protein 100 mg/dL Urine Glucose (UA) NEG mg/dL Urine Ketones TRACE mg/dL Urine Occult Blood NEG Urine Nitrite NEG Urine Bilirubin NEG Urine Urobilinogen LESS THAN 2 mg/dL Urine Leukocyte Esterase SMALL Urine RBC 1 /hpf Urine WBC 13 /hpf Urine Squamous Epithelial Cells 68 /hpf Urine Bacteria MANY /hpf Urine Hyaline Casts 3 /lpf Urine Mucus MANY /lpf Microscopic Urinalysis Comment CULTURE INDICATED Blood Urea Nitrogen 10 MG/DL Creatinine 0.54 MG/DL Random Glucose 82 MG/DL Total Protein 7.0 GM/DL Albumin 2.9 GM/DL Calcium Level 8.8 MG/DL Alkaline Phosphatase 156 U/L Aspartate Amino Transf (AST/SGOT) 18 U/L Alanine Aminotransferase (ALT/SGPT) 16 U/L Total Bilirubin 0.3 MG/DL Sodium Level 141 MEQ/L Potassium Level 3.7 MEQ/L Chloride Level 109 MEQ/L Carbon Dioxide Level 19.1 MEQ/L Anion Gap 13 MEQ/L Estimat Glomerular Filtration Rate 128 ML/MIN Urine Opiates Screen NEG Urine Barbiturates Screen NEG Urine Amphetamines Screen NEG Urine Benzodiazepines Screen NEG Urine Cocaine Screen NEG Urine Cannabinoids Screen NEG Date/Time Source Procedure Growth Status 12/25/17 01:15 Urine Clean Catch Urine Culture Pending Received Physical Exam GENERAL: Well-nourished, well-developed patient. CARDIOVASCULAR: Regular rate and rhythm without murmurs, gallops, or rubs. RESPIRATORY: Breath sounds equal bilaterally. No accessory muscle use. ABDOMEN/GI: Abdomen soft, non-tender. Fundus: gravid Uterine Contractions: [-] irregular FHT's: Category: [-] 1 Baseline: [-] 160s-170s Reactive: [-] yes Variability: [-] Decels: [-] EXTREMITIES: No cyanosis or edema, non-tender, without signs of DVT. Assessment and Plan Problem List: (1) 38 weeks gestation of ICD Codes: Z3A.38 - 38 weeks gestation of Status: Acute (2) Gastroenteritis ICD Codes: K52.9 - Noninfective gastroenteritis and colitis, unspecified Status: Acute Plan: cont IVF tylenol for low grade fever cont zofran/imodium watch for clinical improvement (3) tachycardia affecting management of mother ICD Codes: O76 - Abnormality in heart rate and rhythm complicating labor and delivery Plan: s/p tylenol will order limit u/s and bpp Vahe Diallo MD Dec 25, 2017 08:52
[2017-12-25] MEDS ORDERED: SODIUM CHLORIDE 0.9% FLUSH 10 ML FLUSH IV FLUSH SCH (09:00)
[2017-12-25 10:51] LABS: HEMATOCRIT 29.8 % (35.0-46.0); HEMOGLOBIN 9.9 GM/DL (11.6-15.3); MEAN CELL VOLUME 88.2 FL (80.0-100.0); MEAN CORPUSCULAR HEMOGLOBIN 29.4 PG (27.0-34.0); MEAN CORPUSCULAR HGB CONC 33.3 % (32.0-36.0); MEAN PLATELET VOLUME 12.3 FL (7.0-11.0); PLATELET COUNT 167 TH/MM3 (150-450); RED BLOOD COUNT 3.38 MIL/MM3 (4.00-5.30); RED CELL DISTRIBUTION WIDTH 13.8 % (11.6-17.2)
[2017-12-25] MEDS ORDERED: ACETAMINOPHEN 325 MG TAB PO ONE (16:45)
[2017-12-26 04:10] VITALS: BP 149/92; PULSE 103
[2017-12-26 04:11] VITALS: RESP 18; TEMP 98.2
[2017-12-26 07:42] VITALS: BP 153/96; PULSE 116
[2017-12-26 07:46] VITALS: RESP 18; TEMP 98.6
--- NOTE | 2017-12-26 08:53 | PD.OB.ANTE ---
Subjective Diagnosis: (1) 38 weeks gestation of (2) Gastroenteritis Diagnosis: Principal (3) tachycardia affecting management of mother Interval History Patient reports some chills overnight. She denies any nausea, vomiting, diarrhea overnight. Antepartum ROS: Reports: movement normal, Denies: New complaints, Loss of fluid, Vaginal bleeding, Contractions (Antonio Hill MD R2) Objective Vital Signs Vital Signs Date Time Temp Pulse Resp B/P (MAP) Pulse Ox O2 Delivery O2 Flow Rate FiO2 12/26/17 07:46 98.6 18 12/26/17 07:42 116 153/96 (115) 12/26/17 04:11 98.2 18 12/26/17 04:10 103 149/92 (111) 12/25/17 19:28 98.2 18 12/25/17 19:26 113 142/88 (106) 12/25/17 18:26 19 12/25/17 18:25 99.8 12/25/17 16:45 121 149/81 (103) 12/25/17 16:44 101.2 17 12/25/17 14:18 99.4 12/25/17 14:17 127 122/82 (95) 12/25/17 14:17 19 12/25/17 10:56 16 12/25/17 10:56 99.5 135 110/82 (91) 12/25/17 10:45 125 12/25/17 10:40 108 12/25/17 10:35 109 12/25/17 10:30 111 12/25/17 10:25 122 12/25/17 10:20 113 12/25/17 10:15 111 12/25/17 10:10 112 12/25/17 10:05 124 12/25/17 10:00 119 12/25/17 09:55 119 12/25/17 09:50 125 12/25/17 09:45 122 12/25/17 09:40 124 12/25/17 09:35 121 12/25/17 09:30 112 12/25/17 09:25 114 12/25/17 09:20 119 12/25/17 09:15 111 12/25/17 09:10 122 12/25/17 09:05 123 12/25/17 09:00 128 12/25/17 08:55 130 12/25/17 08:50 128 Lab & Micro Results Test 12/25/17 10:27 White Blood Count 15.0 TH/MM3 Red Blood Count 3.38 MIL/MM3 Hemoglobin 9.9 GM/DL Hematocrit 29.8 % Mean Corpuscular Volume 88.2 FL Mean Corpuscular Hemoglobin 29.4 PG Mean Corpuscular Hemoglobin Concent 33.3 % Red Cell Distribution Width 13.8 % Platelet Count 167 TH/MM3 Mean Platelet Volume 12.3 FL Date/Time Source Procedure Growth Status 12/25/17 01:15 Urine Clean Catch Urine Culture Pending Received Physical Exam GENERAL: Well-nourished, well-developed patient. CARDIOVASCULAR: Regular rate and rhythm without murmurs, gallops, or rubs. RESPIRATORY: Breath sounds equal bilaterally. No accessory muscle use. ABDOMEN/GI: Abdomen soft, non-tender. By palpation, baby's back to mom's right, head down left. GENITOURINARY: Uterine Contractions: [irregular] FHT's: Category: [Cat I] Baseline: [150] Reactive: [reactive] Variability: [moderate] Decels: [none] EXTREMITIES: No cyanosis or edema, non-tender, without signs of DVT. (Antonio Hill MD R2) Assessment and Plan Problem List: (1) Gastroenteritis ICD Codes: K52.9 - Noninfective gastroenteritis and colitis, unspecified Status: Acute Plan: clinically improved no longer requiring IVF tylenol for low grade fever cont zofran/imodium - will d/c with zofran today (2) tachycardia affecting management of mother ICD Codes: O76 - Abnormality in heart rate and rhythm complicating labor and delivery Status: Resolved Plan: s/p tylenol No longer requiring u/s and bpp because of resolution of tachycardia (3) 38 weeks gestation of ICD Codes: Z3A.38 - 38 weeks gestation of Status: Acute (Antonio Hill MD R2) Assessment and Plan Patient seen and evaluated with resident under direct supervision, agree with assessment and plan. (Slade Hopkins MD) Attestation Patient seen and evaluated with resident under direct supervision, agree with assessment and plan. (Slade Hopkins MD) Antonio Hill MD R2 Dec 26, 2017 08:53 Slade Hopkins MD Dec 26, 2017 10:13
[2017-12-26] MEDS ORDERED: ONDA4TAB7 PO (08:55)
--- NOTE | 2017-12-26 08:55 | HHI.DCPOC ---
Discharge Care Plan Diagnosis: (1) Gastroenteritis (2) tachycardia affecting management of mother Report Symptoms to Your Doctor -Temperature above 100.5 degrees -Redness, of incision or excessive or foul smelling drainage -Unusual pain or calf pain -Increased vaginal bleeding -Painful or difficulty urinating -Feelings of extreme sadness or anxiety after 2 weeks Goals to Promote Your Health * To prevent worsening of your condition and complications, please follow-up with care [facility] women within the next week. Directions to Meet Your Goals Take your medications as prescribed Follow your dietary instruction Follow activity as directed Ensure plenty of rest for recovery Drink fluids for hydration Keep your appointments as scheduled Take your immunizations and boosters as scheduled If your symptoms worsen call your PCP, if no PCP go to Urgent Care Center or Emergency Room Smoking is Dangerous to Your Health. Avoid second hand smoke Call the 24-hour crisis hotline for domestic abuse at Antonio Hill MD R2 Dec 26, 2017 08:55
== END 2017-12-26 09:45 | disposition home or self-care (01) ==
LOC: HOBED 23:20 → H2EA 12-25 01:47
PROVIDERS: ADMIT Obstetrics & Gynecology; ATTEND Obstetrics & Gynecology
DX: O21.9 Vomiting of pregnancy, unspecified (principal); Z3A.38 38 weeks gestation of pregnancy; K52.9 Noninfective gastroenteritis and colitis, unspecified; O99.333 Smoking (tobacco) complicating pregnancy, third trimester; F90.9 Attention-deficit hyperactivity disorder, unspecified type; R10.9 Unspecified abdominal pain; O76 Abnormality in fetal heart rate and rhythm complicating labor and delivery; B96.89 Other specified bacterial agents as the cause of diseases classified elsewhere; Z03.89 Encounter for observation for other suspected diseases and conditions ruled out
CPT/HCPCS: 59025; 76819; 80053; 80307; 81001; 85027; 86850; 86900; 86901; 87086; 96360; 96361; 99285; G0378; G0481; J0131; J7120

== ENCOUNTER 2017-12-31 13:10 | Inpatient (IN) ==
[2018-01-02] MEDS ORDERED: Acetaminophen 325 MG Tablet PO PRN (00:01)
[2018-01-02] MEDS ORDERED: Senna/Docusate Sodium 8.6/50 MG Tablet PO PRN (00:01)
[2018-01-02] MEDS ORDERED: Ibuprofen 400 MG Tablet PO PRN (00:01)
[2018-01-02] MEDS ORDERED: Zolpidem Tartrate 5 MG Tablet PO PRN (00:01)
[2018-01-02] MEDS ORDERED: Witch Hazel 50%/Glyderin 12.5% 40 Pad Jar RECTAL PRN (00:01)
[2018-01-02] MEDS ORDERED: Oxytocin 30 Units/500ml Premix 30 UNITS/500 ML BAG IV.SIG PRN (00:01)
[2018-01-02] MEDS ORDERED: Benzocaine 20% Top Spray 60 ML Can TOPICAL PRN (00:01)
[2018-01-02] MEDS ORDERED: fentaNYL 2MCG-Bupiv 0.125% Epi 150 ML EPIDURAL PRN (00:01)
[2018-01-02] MEDS ORDERED: Aluminum/Magnesium/Simethacone Susp 30 ML UDC PO PRN (00:01)
--- NOTE | 2018-01-02 11:36 | P.PNOB ---
Subjective Interval history: Patient is a 37-year-old . Patient is day 2 after . Patient' s pain is well-controlled. Patient reports eating and drinking without any nausea or vomiting. Patient reports minimal bleeding. Patient has passed gas and bowel movements. Patient is walking without lower extremity pain or shortness of breath. Patient reports desire for contraception. Objective Result Diagrams: 12/31/17 13:45 12/31/17 13:45 Objective Remarks: GENERAL: Well-nourished, well-developed patient. CARDIOVASCULAR: Regular rate and rhythm without murmurs, gallops, or rubs. RESPIRATORY: Breath sounds equal bilaterally. No accessory muscle use. ABDOMEN/GI: Abdomen soft, non-tender. Fundus: Firm, non-tender at umbilicus. GENITOURINARY: Light to moderate bleeding. EXTREMITIES: No cyanosis or edema, non-tender, without signs of DVT. Medications and IVs: Active Medications Acetaminophen (Tylenol) 650 mg PO Q4H PRN PRN Reason: PAIN SCALE 1 TO 2 Al Hydrox/Mg Hydrox/Simethicone (Mag-Al Plus Susp Liq) 15 ml PO Q8H PRN PRN Reason: DYSPEPSIA Benzocaine (Americaine 20% [place]) 1 spray TOPICAL Q4H PRN PRN Reason: For Perineum Discomfort Diphenhydramine HCl (Benadryl) 25 mg PO Q4H PRN PRN Reason: ITCHING Oxytocin (Pitocin 30 Units/Ns 500 Ml Premix) 30 units in 500 mls @ 0 mls/hr IV.SIG TITRATE PRN PRN Reason: FOR UTERINE CONTRACTIONS Fentanyl/Bupivacaine/Sodium Chlor (Fentanyl 2 Mcg-Bupiv 0.125% Epi) 150 mls @ 0 mls/hr EPIDURAL TITRATE PRN; Protocol PRN Reason: LABOR PAIN Ondansetron HCl (Zofran Odt) 4 mg PO Q6H PRN PRN Reason: NAUSEA OR VOMITING Senna/Docusate Sodium ([place]-Colace) 2 tab PO Q12H PRN PRN Reason: CONSTIPATION Sodium Chloride (Ns Flush) 2 ml IV.FLUSH BID [place] Sodium Chloride (Ns Flush) 2 ml IV.FLUSH UNSCH PRN PRN Reason: FLUSH AFTER USING IV ACCESS Witch Romana/Glycerin (Tucks Pads) 1 applicatio RECTAL QID PRN PRN Reason: HEMORRHOIDS Zolpidem Tartrate (Ambien) 5 mg PO HS PRN PRN Reason: SLEEP Assessment and Plan - Plan Patient is a 37-year-old . Patient is day 2 after . Patient was counseled to do 6 weeks of pelvic rest. Patient was counseled to follow up in 6 weeks. Patient requested follow-up and contraception. --AF VSS --Continue routine care --Motrin and Percocet when necessary for pain --Encourage OOB --Pelvic rest for 6 weeks will need follow-up appointment at that time. --Contraception: Depo-Provera shot --Anticipate discharge today - Attending Attestation The patient was seen and evaluated with the resident and I was involved in all martin decision making. Continue routine care. SMS
[2018-01-02] MEDS ORDERED: medroxyPROGESTERone Acetate Inj 150 MG/ML Syringe IM ONE (13:00)
== END 2018-01-02 14:22 | disposition home or self-care (01) ==
LOC: UNDODISIN → H1EA 13:25
PROVIDERS: ADMIT Obstetrics & Gynecology; ATTEND Obstetrics & Gynecology